=== PATIENT | female | born 1965 | race Caucasian/White ===

== ENCOUNTER 2017-01-08 17:54 | Emergency (ER) | payer BC ==
[2017-01-08] MEDS ORDERED: Sodium Chloride 0.9% 10 ML Syringe FLUSH PRN (18:24)
--- NOTE | 2017-01-08 18:29 | EDM.PDOC ---
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 She underwent radiation therapy. She has permanent deficits to the right upper and lower extremity described as uncoordinated and weak. States Reyes developed generalized head discomfort described as a pressure sensation with weakness to the left upper and lower extremity. States with onset of headache symptoms worsened. Again symptoms have been intermittent episodic. States yesterday she had a good day. Admits today having pressure to her head with worsening of symptoms as dictated. With evaluation in the ED patient's has had 3 episodes stating she is having pressure to her head. This is short-lived only lasted a few seconds. Patient denies any vision changes, nausea/vomiting, difficulty swallowing, chest pain, SOB, abdominal pain, dysuria , or new numbness and tingling to her extremities. She is not on any prescription medications. 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 ED EXAM, NEURO - Physical Exam Exam: See Below Exam Limited By: No Limitations General Appearance: Alert, WD/WN, No Apparent Distress Eye Exam: Bilateral Eye: EOMI, PERRL Ears: Normal External Exam, Hearing Grossly Normal Nose: Normal Inspection Throat/Mouth: Normal Inspection, Normal Oropharynx, Normal Voice, No Airway Compromise, Other (No facial droop, tongue deviation, slurred speech) Head Exam: Other (Large surgical scar from previous craniotomy. No hair present to this area.) Neck: Normal Inspection, Supple, Non-Tender, Full Range of Motion. No: Carotid Bruit Respiratory/Chest: No Respiratory Distress, Lungs Clear, Normal Breath Sounds, No Accessory Muscle Use, Chest Non-Tender Cardiovascular: Normal Peripheral Pulses, Regular Rate, Rhythm, No Murmur GI/Abdominal: Normal Bowel Sounds, Soft, Non-Tender, No Organomegaly, No Distention Neurological: Alert, Normal Mood/Affect, CN II-XII Intact, No Motor/Sensory Deficits, Oriented x 3, Other (Patient has chronic right-sided weakness to the upper and lower extremities. Foot drop present which is chronic. There is a straight discrepancy from the right the left. Right is greater than left. Cerebellar function intact including finger to nose, Rapid alternating movements intact. No pronator drift.) Back Exam: Normal Inspection Extremities: Normal Inspection, Non-Tender, No Pedal Edema, Normal Capillary Refill Psychiatric: Normal Affect, Normal Mood Skin Exam: Warm, Dry, Intact, Normal Color Course - Vital Signs Last Recorded V/S: Last Vital Signs Temp 97.7 F 01/08/17 18:10 Pulse 101 H 01/08/17 18:10 Resp 21 H 01/08/17 18:10 BP 163/102 H 01/08/17 18:10 Pulse Ox 100 01/08/17 18:10 - Orders/Labs/Meds Orders: Active Orders 24 hr Category Date Time Status EKG Documentation Completion [RC] STAT Care 01/08/17 18:22 Active Peripheral IV Care [RC] . DIRECTED Care 01/08/17 18:24 Active Sodium Chloride 0.9% [Saline Flush] Med 01/08/17 18:24 Active 10 ml FLUSH ASDIRECTED PRN Peripheral IV Insertion Adult [OM.PC] Stat Oth 01/08/17 18:24 Ordered Medication Orders Sodium Chloride (Saline Flush) 10 ml FLUSH ASDIRECTED PRN PRN Reason: Keep Vein Open Last Admin: 01/08/17 19:52 Dose: 10 ml Labs: Laboratory Tests 01/08/17 01/08/17 01/08/17 Range/Units 18:16 19:25 19:25 WBC 5.88 (3.98-10.04) K/mm3 RBC 4.82 (3.98-5.22) M/mm3 Hgb 14.2 (11.2-15.7) gm/L Hct 41.8 (34.1-44.9) % MCV 86.7 (79.4-94.8) fl MCH 29.5 (25.6-32.2) pg MCHC 34.0 (32.2-35.5) g/dl RDW Std Deviation 44.1 (36.4-46.3) fL Plt Count 290 (182-369) K/mm3 MPV 9.5 (9.4-12.3) fl Neut % (Auto) 53.2 (34.0-71.1) % Lymph % (Auto) 33.0 (19.3-51.7) % [place] % (Auto) 10.7 (4.7-12.5) % Eos % (Auto) 2.2 (0.7-5.8) Baso % (Auto) 0.7 (0.1-1.2) % Neut # (Auto) 3.13 (1.56-6.13) K/mm3 Lymph # (Auto) 1.94 (1.18-3.74) K/mm3 [place] # (Auto) 0.63 H (0.24-0.36) K/mm3 Eos # (Auto) 0.13 (0.04-0.36) K/mm3 Baso # (Auto) 0.04 (0.01-0.08) K/mm3 PT (8.0-13.0) SECONDS INR APTT (22-36) SECONDS Sodium 141 (136-145) mEq/L Potassium 3.9 (3.5-5.1) mEq/L Chloride 107 (98-107) mEq/L Carbon Dioxide 24 (21-32) mEq/L Anion Gap 13.9 (5-15) BUN 22 H (7-18) mg/dL Creatinine 0.8 (0.55-1.02) mg/dL Est Cr Clr Drug Dosing 67.27 mL/min Estimated GFR (MDRD) > 60 (>60) mL/min BUN/Creatinine Ratio 27.5 H (14-18) Glucose 102 (74-106) mg/dL POC Glucose 175 H (70-105) mg/dL Calcium 8.9 (8.5-10.1) mg/dL Total Bilirubin 0.5 (0.2-1.0) mg/dL AST 20 (15-37) U/L ALT 26 (14-59) U/L Alkaline Phosphatase 109 (46-116) U/L Troponin I < 0.017 (0.00-0.056) ng/mL Total Protein 6.9 (6.4-8.2) g/dl Albumin 3.7 (3.4-5.0) g/dl Globulin 3.2 gm/dL Albumin/Globulin Ratio 1.2 (1-2) TSH 3rd Generation 2.998 (0.358-3.74) uIU/mL Urine Color (Yellow) Urine Appearance (Clear) Urine pH (5.0-8.0) Ur Specific [place] (1.005-1.030) Urine Protein (Negative) Urine Glucose (UA) (Negative) Urine Ketones (Negative) Urine Occult Blood (Negative) Urine Nitrite (Negative) Urine Bilirubin (Negative) Urine Urobilinogen (0.2-1.0) Ur Leukocyte Esterase (Negative) Urine RBC (0-5) /hpf Urine WBC (0-5) /hpf Ur Epithelial Cells (0-5) /hpf Urine Bacteria (FEW) /hpf Urine Mucus (FEW) /hpf 01/08/17 01/08/17 Range/Units 19:25 19:40 WBC (3.98-10.04) K/mm3 RBC (3.98-5.22) M/mm3 Hgb (11.2-15.7) gm/L Hct (34.1-44.9) % MCV (79.4-94.8) fl MCH (25.6-32.2) pg MCHC (32.2-35.5) g/dl RDW Std Deviation (36.4-46.3) fL Plt Count (182-369) K/mm3 MPV (9.4-12.3) fl Neut % (Auto) (34.0-71.1) % Lymph % (Auto) (19.3-51.7) % [place] % (Auto) (4.7-12.5) % Eos % (Auto) (0.7-5.8) Baso % (Auto) (0.1-1.2) % Neut # (Auto) (1.56-6.13) K/mm3 Lymph # (Auto) (1.18-3.74) K/mm3 [place] # (Auto) (0.24-0.36) K/mm3 Eos # (Auto) (0.04-0.36) K/mm3 Baso # (Auto) (0.01-0.08) K/mm3 PT 9.9 (8.0-13.0) SECONDS INR 0.91 APTT 25 (22-36) SECONDS Sodium (136-145) mEq/L Potassium (3.5-5.1) mEq/L Chloride (98-107) mEq/L Carbon Dioxide (21-32) mEq/L Anion Gap (5-15) BUN (7-18) mg/dL Creatinine (0.55-1.02) mg/dL Est Cr Clr Drug Dosing mL/min Estimated GFR (MDRD) (>60) mL/min BUN/Creatinine Ratio (14-18) Glucose (74-106) mg/dL POC Glucose (70-105) mg/dL Calcium (8.5-10.1) mg/dL Total Bilirubin (0.2-1.0) mg/dL AST (15-37) U/L ALT (14-59) U/L Alkaline Phosphatase (46-116) U/L Troponin I (0.00-0.056) ng/mL Total Protein (6.4-8.2) g/dl Albumin (3.4-5.0) g/dl Globulin gm/dL Albumin/Globulin Ratio (1-2) TSH 3rd Generation (0.358-3.74) uIU/mL Urine Color Yellow (Yellow) Urine Appearance Clear (Clear) Urine pH 6.0 (5.0-8.0) Ur Specific [place] 1.025 (1.005-1.030) Urine Protein Negative (Negative) Urine Glucose (UA) Negative (Negative) Urine Ketones Negative (Negative) Urine Occult Blood Trace-intact H (Negative) Urine Nitrite Negative (Negative) Urine Bilirubin Negative (Negative) Urine Urobilinogen 0.2 (0.2-1.0) Ur Leukocyte Esterase Trace H (Negative) Urine RBC 0-5 (0-5) /hpf Urine WBC 5-10 H (0-5) /hpf Ur Epithelial Cells 5-10 H (0-5) /hpf Urine Bacteria Few (FEW) /hpf Urine Mucus Not seen (FEW) /hpf Meds: Medications Generic Name Dose Route Start Last Admin Trade Name Freq PRN Reason Stop Dose Admin Sodium Chloride 10 ml 01/08/17 18:24 01/08/17 19:52 Saline Flush FLUSH 10 ml ASDIRECTED PRN Administration Keep Vein Open Discontinued Medications Generic Name Dose Route Start Last Admin Trade Name Freq PRN Reason Stop Dose Admin Acetaminophen 975 mg 01/08/17 19:14 01/08/17 19:29 Tylenol PO 01/08/17 19:15 975 mg NOW ONE Administration Aspirin 324 mg 01/08/17 20:22 01/08/17 20:30 Aspirin PO 01/08/17 20:23 324 mg ONETIME ONE Administration - Re-Assessments/Exams Free Text/Narrative Re-Assessment/Exam: Patient will be taken immediately for CT of the head without contrast. Initial labs include CBC, chem 14, coag studies, troponin, TSH, UA, and EKG. 01/08/17 19:05 CT of the head impression: Old surgery with encephalomalacia within the left convexity with dystrophic calcifications. Nothing acute is appreciated on noncontrast head CT study. Ordered tylenol 975mg PO for mild head pressure. EKG sinus rhythm at a rate of [address] changes noted. 01/08/17 20:24 Labs reviewed: CBC and chem 14 essentially normal. Troponin less than 0.017. TSH 2.998. 2018 Reassessment, patient states approximately half hour ago she said developing severe coordination issues to her left arm and hand. On examination movements are uncoordinated. [facility] is weak. No other concerning findings on examination at this point. She requests [facility] is transferred. Will contact [facility] will call. ASA 324 mg by mouth ordered. Believe patient may be having TIAs. Additional hx patient had similar symptoms approx. 1 year ago that lasted 40 minutes. Resolved on its own accord with no lasting effects. Believed it was related to pinched nerve. No followup conducted. [address] 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. Unclear etiology of current complaint. Suggested two options. Transfer to [facility] and admit with him consulted. Or discharge home with patient taking ASA 324mg PO everyday, call his clinic Tuesday at [phone]. During my conversation patient per nursing complaining of weakness to the left lower leg.. Discussed findings with patient and . They will discuss the option they will go with. 01/08/17 20:54 Patient has determined she would like to be transported to [facility] for further evaluation. Patients weakness is improving. She is continuing to have weakness to the left upper extremity with n/t to the hand. Symptoms are improving. [address] Ramon salesperson pianos and organs Hospitalists [facility]. Requested patient transported to the E.D. for further evaluation for stat MRI. Reiterated patients symptoms are improving suggesting TIA. Requests transfer to E.D. [address] J Luis Oliva Physician. He has accepted the patient. Ambulance has been notified. Transfer paperwork completed. Departure - Departure Time of Disposition: 21:42 Disposition: DC/Tfer to Acute Hospital 02 Condition: Good Clinical Impression: Stroke-like symptoms - Discharge Information Referrals: Neyda Todd, CARDIOVASCULAR SPECIALIST [Primary Care Provider] - Forms: ED Department Discharge - My Orders Last 24 Hours: My Active Orders 01/08/17 18:22 EKG Documentation Completion [RC] STAT 01/08/17 18:24 Peripheral IV Care [RC] . DIRECTED Sodium Chloride 0.9% [Saline Flush] 10 ml FLUSH ASDIRECTED PRN Peripheral IV Insertion Adult [OM.PC] Stat - Assessment/Plan Last 24 Hours: My Active Orders 01/08/17 18:22 EKG Documentation Completion [RC] STAT 01/08/17 18:24 Peripheral IV Care [RC] . DIRECTED Sodium Chloride 0.9% [Saline Flush] 10 ml FLUSH ASDIRECTED PRN Peripheral IV Insertion Adult [OM.PC] Stat
[2017-01-08 18:31] VITALS: BP 163/102
--- NOTE | 2017-01-08 18:54 | CT ---
Head CT Technique: Multiple axial sections through the brain were obtained. Intravenous contrast was not utilized. Comparison: No previous intracranial imaging is available. Findings: Low-density area compatible with encephalomalacia is seen within the upper left convexity. Previous craniotomy is seen. Dystrophic calcifications are noted in the same area as well as within the upper right convexity. Ventricles are along with basal cisterns and sulci over the convexities are otherwise are within normal limits. No abnormal parenchymal densities are otherwise seen. No evidence of intracranial hemorrhage. No midline shift or mass effect is seen. Visualized sinuses are clear. No acute calvarial abnormality is seen. Impression: 1. Old surgery with encephalomalacia within the left convexity with dystrophic calcifications. 2. Nothing acute is appreciated on noncontrast head CT study. Diagnostic code #2
[2017-01-08] MEDS ORDERED: Acetaminophen 325 MG Tab PO ONE (19:14)
[2017-01-08] MEDS ORDERED: Aspirin 81 MG Tab.Chew PO ONE (20:22)
== END 2017-01-08 22:08 ==
LOC: JD.ED 17:54
DX: R68.89 Other general symptoms and signs (principal); Z98.890 Other specified postprocedural states
CPT/HCPCS: 36415; 70450; 80053; 81001; 82962; 84443; 84484; 85025; 85610; 85730; 93005; 99285; A9270; J7050

== ENCOUNTER 2018-10-18 18:10 | Emergency (ER) | payer BC ==
[2018-10-18 18:20] VITALS: BP 176/91
--- NOTE | 2018-10-18 19:47 | EDM.PDOC ---
ED HPI GENERAL MEDICAL PROBLEM - General Chief Complaint: Head Injury Stated Complaint: FALL-HEAD INJURY Time Seen by Provider: 10/18/18 19:02 Source of Information: Reports: Patient, RN Notes Reviewed History Limitations: Reports: No Limitations - History of Present Illness INITIAL COMMENTS - FREE TEXT/NARRATIVE: Patient is a 53-year-old female who presents to the ED for the evaluation of a fall. The patient notes an extensive prior medical history, she had a brain tumor when she was 6 years old that required 2 surgeries, she had some mobility issues relating to these surgeries and had an MRI in 2003 that showed some tumors due to this, and she had an ischemic stroke in 2017. The patient states that she normally uses a scooter for mobility. She states she was in her bathroom today and simply fell off of the scooter and hit the back of her head on the toilet. She denies any sort of loss of consciousness at the time. The patient did appreciate some developing numbness and tingling on the left side of her body, this is in her arm and leg. But she states this did resolve upon initial examination. The patient does have normal residual right sided weakness prior to this. She states this is not increased more than normal. Patient denies any sort of headache at this time. She denies any nausea or vomiting that she may have had. She states she was not dizzy or faint before the resulting fall. The patient states that she has most of her pain in the occipital portion of her head. There is no laceration noted to this area. - Related Data Allergies Allergy/AdvReac Type Severity Reaction Status Date / Time No Known Allergies Allergy Verified 10/18/18 18:20 Home Meds: Home Meds Calcium Carbonate [Calcium] 500 mg PO DAILY 04/02/15 [History] Cholecalciferol (Vitamin D3) [Vitamin D3] 2,000 unit PO DAILY 04/02/15 [History] Aspirin 325 mg PO DAILY 10/18/18 [History] Fish Oil/[place]-3 Fatty Acids [Fish Oil] 500 mg PO DAILY 10/18/18 [History] Garlic 1,000 mg PO DAILY 10/18/18 [History] Omeprazole 20 mg PO DAILY 10/18/18 [History] Rosuvastatin [Crestor] 5 mg PO DAILY 10/18/18 [History] Past Medical History HEENT History: Reports: Impaired Vision Cardiovascular History: Reports: High Cholesterol Genitourinary History: Reports: Renal Calculus 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: Neurological History: Reports: CVA (2017, ischemic stroke), Other (See Below) Other Neuro History: Paresthesia that affects lower extremities from brain tumor as a child Oncologic (Cancer) History: Reports: Brain - Past Surgical History Endocrine Surgical History: Reports: Other (See Below) Neurological Surgical History: Reports: Other (See Below) Social & Family History - Family History Family Medical History: Noncontributory - Tobacco Use Smoking Status *Q: Never Smoker - Recreational Drug Use Recreational Drug Use: No ED ROS GENERAL - Review of Systems Review Of Systems: See Below Constitutional: Denies: Fever, Chills HEENT: Denies: Ear Discharge, Sinus Problem, Vision Change Respiratory: Denies: Shortness of Breath Cardiovascular: Denies: Chest Pain Endocrine: Reports: No Symptoms GI/Abdominal: Denies: Abdominal Pain, Nausea, Vomiting Musculoskeletal: Reports: Other (posterior occipital head pain). Denies: Neck Pain Skin: Reports: Lumps (hematoma to occiput of head) Neurological: Reports: Numbness, Pre-Existing Deficit (on right side mainly), Tingling Psychiatric: Reports: No Symptoms Hematologic/Lymphatic: Reports: No Symptoms Immunologic: Reports: No Symptoms ED EXAM, HEAD INJURY - Physical Exam Exam: See Below Exam Limited By: No Limitations General Appearance: Alert, WD/WN, No Apparent Distress Head: Atraumatic, Scalp Hematoma (to occiput of head). No: Scalp Lacerations, Active Bleeding, Pelletier's Sign, Raccoon Eyes Nexus Criteria: No: Posterior, Midline Cervical Tenderness, Evidence of Intoxication, Altered Level of Consciousness, Focal Neurological Deficit, Painful Distraction Injuries Eyes: Bilateral Eye: EOMI, Normal Inspection, PERRL Ears: Normal External Exam, Normal Canal, Hearing Grossly Normal, Normal TMs Nose: Normal Inspection Throat/Mouth: Normal Inspection, Normal Lips, Normal Teeth, Normal Gums, Normal Oropharynx, Normal Voice, No Airway Compromise Neck: Non-Tender, Full Range of Motion, Normal Alignment, Normal Inspection Respiratory: No Respiratory Distress, Lungs Clear, Normal Breath Sounds, No Accessory Muscle Use, Chest Non-Tender Cardiovascular: Normal Peripheral Pulses, Regular Rate, Rhythm, No Murmur GI/Abdominal Exam: Normal Bowel Sounds, Soft, Non-Tender, No Distention, No Mass Extremities: Normal Inspection, Normal Capillary Refill 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 As Tested, Alert, Normal Mood/Affect, Oriented x 3, Facial Droop (not increased from baseline for her), Motor Weakness (right sided , not increased from baseline) Skin: Normal Color, Warm/Dry - [place] Coma Score Best Eye Response (Fanny): (4) Open Spontaneously Best Verbal Response ([place]): (5) Oriented Best Motor Response (Fanny): (6) Obeys Commands Fanny Total: 15 Course - Vital Signs Last Recorded V/S: Last Vital Signs Temp 97.1 F 10/18/18 18:18 Pulse 87 10/18/18 18:18 Resp 15 10/18/18 18:18 BP 176/91 H 10/18/18 18:18 Pulse Ox 97 10/18/18 18:18 - Re-Assessments/Exams Free Text/Narrative Re-Assessment/Exam: 10/18/18 19:52 Patient presents to the ED for evaluation of a head injury. Did order a head CT without contrast for further evaluation of injury she may have sustained. She is not complaining of any headache at this time but due to her extensive history and left-sided weakness that did resolve we will go ahead and order the head CT. 10/18/18 20:[address] is done, demonstrates 1. Soft tissue swelling and hematoma within the posterior scalp. 2. Stable area of encephalomalacia on the left side with adjacent craniotomy. 3. Stable dystrophic calcifications within the cortical services of the convex these. 4. No acute intracranial abnormality is identified. There was no evidence of any sort of intracranial hemorrhage or midline shift or mass effect. We'll discharge the patient home with general recommendations. Departure - Departure Time of Disposition: 20:46 Disposition: Home, Self-Care 01 Condition: Fair Clinical Impression: Head injury Qualifiers: Encounter type: initial encounter Qualified Code(s): S09.90XA - Unspecified injury of head, initial encounter - Discharge Information *PRESCRIPTION DRUG MONITORING PROGRAM REVIEWED*: No *COPY OF PRESCRIPTION DRUG MONITORING REPORT IN PATIENT HARDIK: No Instructions: Head Injury, Adult, [id number] Referrals: Savannah Mcadams MD [Primary Care Provider] - Forms: ED Department Discharge Additional Instructions: You were evaluated in the ED today for your headache injury. You did receive a CT and this demonstrated no acute abnormalities at this time. You have sustained a pretty impressive bruise to the posterior scalp, this will likely be tender for a few days. You may take [id number] pain medications as directed for further pain management. Please return to the ED if your symptoms should change or worsen.
--- NOTE | 2018-10-18 20:27 | CT ---
Head CT Technique: Multiple axial sections through the brain were obtained. Intravenous contrast was not utilized. Comparison: Prior head CT study of 01/08/17. Findings: Old area of encephalomalacia is noted mostly within the left parietal region extending into the left parietal convexity involving both cortical surfaces and adjacent white matter. This finding is stable from previous exam. Dystrophic calcifications are seen overlying the convexities which remain stable from previous exam. No other abnormal parenchymal densities are seen. No evidence of intracranial hemorrhage. No midline shift or mass effect is seen. Soft tissue hematoma and swelling is noted posteriorly within the scalp. Bone window settings were reviewed which shows no acute calvarial abnormality. Previous left-sided craniotomy is seen. Mastoid sinuses that are seen appear clear. Visualized paranasal sinuses show nothing acute. Impression: 1. Soft tissue swelling and hematoma within the posterior scalp. 2. Stable area of encephalomalacia on the left side with adjacent craniotomy. 3. Stable dystrophic calcifications within the cortical surfaces of the convexities. 4. No acute intracranial abnormality is identified. Diagnostic code #2
== END 2018-10-18 21:09 | disposition home or self-care (01) ==
LOC: JD.ED 18:10
DX: S09.90XA Unspecified injury of head, initial encounter (principal); E78.00 Pure hypercholesterolemia, unspecified; Z79.82 Long term (current) use of aspirin; Z79.899 Other long term (current) drug therapy; W18.12XA Fall from or off toilet with subsequent striking against object, initial encounter
CPT/HCPCS: 70450; 70450-26; 99282; 99283-25

== ENCOUNTER 2020-01-30 08:20 | Emergency (ER) | payer BC ==
[2020-01-30 08:34] VITALS: BP 139/81; PULSE 60
--- NOTE | 2020-01-30 08:37 | EDM.PDOC ---
ED HPI GENERAL MEDICAL PROBLEM - General Chief Complaint: Laceration Stated Complaint: FALL/LIP LAC Time Seen by Provider: 01/30/20 08:37 Source of Information: Reports: Patient History Limitations: Reports: No Limitations - History of Present Illness INITIAL COMMENTS - FREE TEXT/NARRATIVE: 54-year-old female presents to the ED for evaluation of injuries to her left hemiface from a fall at home this morning. Patient was getting ready to work and was coming down the stairs towards her garage and missed a stair which propelled her forwards and she believes she struck her walker which was already at the base of the landing. She believes the handle of the walker struck her in the left hemiface with resultant deep laceration to the left side of her face and lip. She also suffered a contusion and minimal laceration inferior to her left eye appears that her glasses probably struck her in the face in this area. Patient is mobility impaired. 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 This left her with some right-sided hemiparesis. She also had an ischemic stroke in 2017. At present she feels no dental abnormalities or significant pain inferior to her left eye with clenching of her teeth. She denies any loss of consciousness. She denies any cervical neck pain. She denies any pain in her wrists hands elbows or knees. Her was home and more or less broke some of her fall. He has accompanied her to the emergency room. Onset: Today, Sudden Onset Date: 01/30/20 Onset Time: 07:10 Duration: Minutes: Location: Reports: Face Quality: Reports: Ache Severity: Moderate Improves with: Reports: None Worsens with: Reports: None Context: Reports: Trauma. Denies: Activity, Exercise, Lifting, Sick Contact Associated Symptoms: Denies: Confusion (Fall at home as etiology of injury.), Chest Pain, Cough, cough w sputum, Diaphoresis, Fever/Chills, Headaches, Loss of Appetite, Malaise, Nausea/Vomiting, Rash, Shortness of Breath, Syncope Treatments DIRECTOR INSTITUTION: Reports: Other (see below) Left Cheek Pain Score (Numeric/FACES): 2 - Related Data Allergies Allergy/AdvReac Type Severity Reaction Status Date / Time No Known Allergies Allergy Verified 01/30/20 08:34 Home Meds: Home Meds Calcium Carbonate [Calcium] 500 mg PO DAILY 04/02/15 [History] Cholecalciferol (Vitamin D3) [Vitamin D3] 2,000 unit PO DAILY 04/02/15 [History] Aspirin 325 mg PO DAILY 10/18/18 [History] Fish Oil/[place]-3 Fatty Acids [Fish Oil] 500 mg PO DAILY 10/18/18 [History] Garlic 1,000 mg PO DAILY 10/18/18 [History] Omeprazole 20 mg PO DAILY 10/18/18 [History] Rosuvastatin [Crestor] 5 mg PO DAILY 10/18/18 [History] Amoxicillin/Clavulanate K [Augmentin 500-125 MG] 1 tab PO BID #16 tablet 01/30/20 [Rx] Propranolol [Inderal LA] 80 mg PO DAILY 01/30/20 [History] oxyCODONE HCl/Acetaminophen [Percocet 5-325 mg Tablet] 1 - 2 each PO Q4H PRN #12 tablet 01/30/20 [Rx] Past Medical History HEENT History: Reports: Impaired Vision Cardiovascular History: Reports: High Cholesterol Genitourinary History: Reports: Renal Calculus [employer]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 GEOLOGICAL History: Reports: Neurological History: Reports: CVA (2017, ischemic stroke), Other (See Below) Other Neuro History: Paresthesia that affects lower extremities from brain tumor as a child Oncologic (Cancer) History: Reports: Brain - Past Surgical History Endocrine Surgical History: Reports: Other (See Below) Neurological Surgical History: Reports: Other (See Below) Social & Family History - Family History Family Medical History: No Pertinent Family History - Living Situation & Occupation Living situation: Reports: Occupation: Employed [employer] - Review of Systems Review Of Systems: See Below Constitutional: Reports: Fatigue. Denies: Fever, Chills, Malaise, Weakness, Decreased Appetite, Weight Loss HEENT: Reports: Glasses Respiratory: Denies: Shortness of Breath, Wheezing, Pleuritic Chest Pain Cardiovascular: Reports: No Symptoms Endocrine: Reports: Fatigue (She reports chronic for her.) GI/Abdominal: Reports: No Symptoms : Reports: No Symptoms Musculoskeletal: Reports: Other (Patient has a flexion contracture of her right wrist and upper extremity at the elbow.) Skin: Reports: No Symptoms Neurological: Reports: Weakness (Patient has a right-sided hemiparesis since age 6 when she had a brain tumor resection left parieto-occipital brain. She also has subsequently been identified to have had a ischemic stroke affecting the right side in 2017. Her gait is aided by a walker.). Denies: Confusion, Dizziness, Headache, Numbness, Syncope, Tingling Psychiatric: Reports: No Symptoms Hematologic/Lymphatic: Reports: No Symptoms Immunologic: Reports: No Symptoms ED EXAM, SKIN/RASH Exam: See Below Exam Limited By: No Limitations General Appearance: Alert, WD/WN, Mild Distress, Other (Temperature is 36.1. Heart rate 60 and sinus respiratory is 15 with O2 sats of 99% room air BP 1 3981.) Eye Exam: Left Eye: Periorbital Changes (Has some early swelling and ecchymosis inferior to her left eye with a 1.4 superficial laceration lateral inferior to the left eye.), Bilateral Eye: PERRL Nose: Normal Inspection, Normal Mucosa Throat/Mouth: Other (Patient has suffered a 4.0 centimeter laceration left hemiface which starts at the left upper lip lateral vermilion border and does involve the inner mucosa of the lip as well. The laceration travels up her left hemiface approximately 3 cm. It is in a diagonal pattern away from her lip. No dental injuries appreciated. There is some mild gingiva swelling left upper bicuspids.) Neck: Normal Inspection, Supple, Non-Tender, Full Range of Motion. No: Lymphade nopathy (L), Lymphadenopathy (R) Respiratory/Chest: No Respiratory Distress, Lungs Clear, Normal Breath Sounds, No Accessory Muscle Use Cardiovascular: Normal Peripheral Pulses, Regular Rate, Rhythm, No Edema, No Gallop, No Murmur, No Rub Peripheral Pulses: 2+: Posterior Tibial (L), Posterior Tibial (R), Dorsalis Pedis (L), Dorsalis Pedis (R), 3+: Carotid (L), Carotid (R) Extremities: Other (Patient has signs and symptoms of right-sided hemiparesis. She has flexion contractures of her right hand right and flexion contracture at the right elbow. No evidence of injury to either upper extremity. No injuries to the lower extremities appreciated either. I.e. knees hips wrists elbows and hands were normal.) Neurological: Alert, Oriented, CN II-XII Intact, Normal Cognition, Other (Chronic right-sided hemiparesis since brain tumor diagnosed in 2007 and resected from the left parieto-occipital lobe) Psychiatric: Normal Affect, Normal Mood Skin: Warm, Dry, Normal Color, No Rash. No: Intact ED SKIN PROCEDURES - Laceration/Wound Repair Left Middle Face Appearance: Subcutaneous, Irregular, Clean, Other (Complex facial laceration lef t side of face 3 cm obvious laceration to the left face extending from the lateral left upper lip in a diagonal fashion to the facial cheek. There is a laceration through the vermilion border and through the buccal mucosa left inner cheek up to the gingiva margin. This also measured 4 cm in length. The lip and inner buccal mucosa were sutured using 4-0 Vicryl suture x11. Total laceration length is 8 cm.) Distal NVT: Neuro & Vascular Intact Anesthetic Type: Local Local Anesthesia - Lidocaine (Xylocaine): 1% Plain Local Anesthetic Volume: Other (20 mls in total.) Skin Prep: Saline Exploration/Debridement/Repair: Wound Explored, Multiple Flaps Aligned Closed with: Sutures Lac/Wound length In cm: 4.0 Suture Size: 4-0 # of Sutures: 12 Suture Size: 4-0 # of Sutures: 11 Repaired with: Vicryl Course - Vital Signs Last Recorded V/S: Last Vital Signs Temp 36.1 C 01/30/20 08:31 Pulse 60 01/30/20 08:31 Resp 15 01/30/20 08:31 BP 139/81 01/30/20 08:31 Pulse Ox 99 01/30/20 08:31 - Orders/Labs/Meds Meds: Medications Discontinued Medications Generic Name Dose Route Start Last Admin Trade Name Rocq PRN Reason Stop Dose Admin Lidocaine HCl 20 ml 01/30/20 08:38 01/30/20 08:56 Xylocaine 1% INJECT 01/30/20 08:39 20 ml ONETIME ONE Administration - Radiology Interpretation Free Text/Narrative:: 54-year-old female presents to the ED for evaluation of facial injuries sustained from a fall at home this morning. 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 She is also subsequently had an ischemic stroke involving the right side in 2017. She usually is able to get along with a walker. This morning she was going down a few stairs from her home to the landing before going into the garage and she missed a stair. Her walker was already at the base of the stair on the landing and she believes she face planted into the handlebars of the walker. This is resulted in extensive left- sided hemifacial laceration which involves the vermilion border left lateral upper lip and into the inner mucosa. She has also contusion inferior to the left eye and developing ecchymosis inferior left eye. There is also a superficial 1.5 cm laceration in inferior lateral to the left eye. The deep laceration is going to require surgical repair for sure. Superficial laceration will be explored at the time of wound cleanse and an anesthetic application. - Re-Assessments/Exams Free Text/Narrative Re-Assessment/Exam: 01/30/20 10:06: Very complex left hemifacial laceration occurred from blunt trauma this morning. She has a 3 cm laceration of the left face extending from the left upper lip laterally to the facial cheek in a diagonal fashion. This wound was cleansed and then sutured under local anesthetic using 4-0 Vicryl suture x12. Full-thickness laceration through the left upper lip and inner buccal mucosa up to the gingiva margin on the left inner facial cheek. These wounds were closed using 4-0 Vicryl suture x11. Patient will be placed on Augmentin 500/125 mg tablet twice daily for the next 8 days to prevent secondary wound infection. 12 tablets of Percocet were provided 1 tablet every 4-6 hours to say for pain relief. 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 Sutures will need to be removed from the left outer skin laceration in 7 to 8 days time. Vicryl sutures left upper lip and inner bucca mucosa will dissolve on their own over the next 7 to 10 days. Advised to cleanse her mouth daily 2-3 times with either dilutes saline solution or scope/commercial mouthwash. She will otherwise cleanse her facial wounds daily with soap and water and apply topical antibiotic such as bacitracin or Polysporin. Departure - Departure Time of Disposition: 10:26 Disposition: Home, Self-Care 01 Condition: Fair Clinical Impression: Fall as cause of accidental injury at home as place of occurrence Qualifiers: Encounter type: initial encounter Qualified Code(s): W19.XXXA - Unspecified fall, initial encounter Complex laceration of face Qualifiers: Encounter type: initial encounter Qualified Code(s): S01.91XA - Laceration without foreign body of unspecified part of head, initial encounter - Discharge Information *PRESCRIPTION DRUG MONITORING PROGRAM REVIEWED*: Not Applicable *COPY OF PRESCRIPTION DRUG MONITORING REPORT IN PATIENT HARDIK: Not Applicable Prescriptions: Amoxicillin/Clavulanate K [Augmentin 500-125 MG] 1 tab PO BID #16 tablet oxyCODONE HCl/Acetaminophen [Percocet 5-325 mg Tablet] 1 - 2 each PO Q4H PRN #12 tablet PRN Reason: pain relief. Instructions: Laceration Care, Adult, [id number] Referrals: Savannah Mcadams MD [Primary Care Provider] - Forms: ED Department Discharge, ED Return to Work/School Form Additional Instructions: Evaluation in the emergency room this morning in regards to a fall at home that occurred this morning. The fall occurred while walking down a few stairs to the landing. By history you struck the handlebars of your walker with your left hemiface resulting in a very complex left facial laceration involving your lip, left lower face and inner aspect of the upper mouth inner cheek with lacerations up to the gingiva margin on the left side. Sutures placed on the inside are dissolvable and will dissolve on their own over the next 7 to 12 days. The s utures on the outside which are black in color will need to be removed in the clinic in 7 to 8 days time. Please make an appointment to follow-up with your personal care physician to have this carried out. You will require antibiotic Augmentin 500/125 mg tablet twice daily for the next 8 days to prevent secondary wound infection. I did prescribe a few Percocet tablets for pain. 1 tablet ideally every 4-6 hours as needed for the next couple of days for pain relief. After this may take Motrin to reduce pain and swelling. May apply ice pack to the left hemiface if so desired to reduce swelling. The laceration under your left eye was also repaired times 2 sutures. Sutures should be removed from this area again in 7 to 8 days time. Wound should be cleansed daily with soap and water. Showering is okay. Then apply topical antibiotic such as bacitracin or Polysporin to the wounds once or twice daily. Suggest oral mouth rinse either with dilute salt water solution or an [id number] mouthwash such as scope or Listerine. Suggest using this 3 times daily for the next 7 days until the inner lining of your mouth can heal. Sepsis Event Note (ED) - Evaluation Sepsis Screening Result: No Definite Risk - Focused Exam Vital Signs: Vital Signs Temp Pulse Resp BP Pulse Ox 01/30/20 08:31 36.1 C 60 15 139/81 99
[2020-01-30] MEDS ORDERED: Lidocaine 1% 10 ML MDV INJECT ONE (08:38)
== END 2020-01-30 10:58 | disposition home or self-care (01) ==
LOC: JD.ED 08:20
DX: S01.81XA Laceration without foreign body of other part of head, initial encounter (principal); S01.511A Laceration without foreign body of lip, initial encounter; S01.512A Laceration without foreign body of oral cavity, initial encounter; S05.12XA Contusion of eyeball and orbital tissues, left eye, initial encounter; W10.9XXA Fall (on) (from) unspecified stairs and steps, initial encounter; Y92.009 Unspecified place in unspecified non-institutional (private) residence as the place of occurrence of the external cause
CPT/HCPCS: 12011; 13152; 99282; J2001; 13132; 13133; 40650; 99283